=== PATIENT | female | born 1955 | race Caucasian/White ===

== ENCOUNTER → 2017-07-29 | Outpatient (CLI) | payer MEDICARE ==
[~2017-07-29] MED LIST: AMBIEN10 MG PO; ASPIRIN LO-DOSE81 MG PO; COZAAR100 MG PO; DELSYM30 MG/5 ML PO; DELTASONE20 MG PO; FLONASE 50 MCG/16 GM NOSE; GLUCOPHAGE1000 MG PO; LIPITOR80 MG PO; NEURONTIN800 MG PO; NORCO 5-325 MG1 TAB PO; PROVENTIL OR V6.7 GM INH; RYTHMOL150 MG PO; SYMBICORT 16010.2 GM INH; TENORMIN50 MG PO; TRULICITY0.75 MG/0. SUB-Q; TUMS REGULAR ST1 TAB PO; ZOFRAN4 MG PO; ZOLOFT100 MG PO
== END ==
LOC: LNHI 19:38
DX: E78.5 Hyperlipidemia, unspecified (principal); I10 Essential (primary) hypertension; I25.10 Atherosclerotic heart disease of native coronary artery without angina pectoris